=== PATIENT | female | born 1990 | race Caucasian/White ===

== ENCOUNTER 2021-11-20 10:55 | Outpatient (CLI) | payer BC, SELFPAY ==
[2021-11-20 11:17] LABS: Basophils Absolute Auto 0.1 K/mm3 (0.0-0.1); Basophils Percent Auto 0.6 % (0.2-1.2); Eosinophils Absolute Auto 0.3 K/mm3 (0-0.3); Hemoglobin 13.9 g/dL (12.0-15.0); Immature Granulocyte Absolute 0.02 K/mm3 (0.00-0.031); Immature Granulocyte Percent A 0.2 % (0-0.5); Lymphocytes Absolute Auto 2.87 K/mm3 (0.9-3.2); Lymphocytes Percent Auto 31.9 % (18.3-44.2); Mean Corpuscular HGB Conc 33.1 g/dl (32-36); Mean Corpuscular Hemoglobin 30.5 pg (26-34); Mean Corpuscular Volume 92.1 fl (80-100); Mean Platelet Volume 10.3 fl (7.4-10.4); Monocytes Absolute Auto 0.3 K/mm3 (0.1-0.6); Monocytes Percent Auto 3.7 % (2.6-8.5); Neutrophils Absolute Auto 5.5 K/mm3 (1.3-6.7); Neutrophils Percent Auto 60.6 % (45.5-73.1); Platelet Count Result 296 k/mm3 (150-375); Red Blood Count 4.56 M/mm3 (4.2-5.4); Red Cell Distribution Width 12.2 % (11.5-14.5)
[2021-11-20 11:27] LABS: Alanine Aminotransferase 51 U/L (4-35); Alkaline Phosphatase 76 U/L (38-126); Anion Gap 6 mmol/L (8-16); Aspartate Amino Transferase 33 U/L (14-36); Bilirubin,Total 0.5 mg/dL (0.2-1.3); Blood Urea Nitrogen 12 mg/dL (7-17); Calcium 8.7 mg/dL (8.4-10.2); Carbon Dioxide 24 mmol/L (22-30); Chloride 106 mmol/L (98-107); Cholesterol 244 mg/dL (0-200); Estimated Glomerular Filt Rate > 60; Glucose 102 mg/dL (65-110); HDL Direct 53 mg/dL; Potassium 4.4 mmol/L (3.4-5.0); Sodium 136 mmol/L (137-145); Triglycerides 237 mg/dL (<150)
[2021-11-20 11:29] LABS: Hemoglobin A1C 4.8 % (<5.7)
[2021-11-20 11:37] LABS: LDL Cholesterol Direct 130 mg/dL
== END 2021-11-20 10:56 | disposition home or self-care (01) ==
LOC: ANHLAB 10:58
PROVIDERS: PCP Family Medicine; Visit Provider Family Medicine
DX: F41.1 Generalized anxiety disorder (principal); Z13.220 Encounter for screening for lipoid disorders; I10 Essential (primary) hypertension
CPT/HCPCS: 36415; 80053; 80061; 83036; 84443; 85025

== ENCOUNTER → 2021-12-04 08:18 | Outpatient (CLI) | payer BC, SELFPAY ==
--- NOTE | ~2021-12-04 | US_ITS ---
EXAMINATION: US abdomen complete EXAM DATE: 12/04/2021 08:41 INDICATION: R74.8 - Abnormal levels of other serum enzymes. TECHNIQUE: Multiple grayscale and Doppler images of the complete abdomen were obtained (by a technolo gist who performed the scan) and subsequently reviewed. There is no prior study for comparison. FINDINGS: The abdominal aorta is normal in caliber. Visualized portion IVC is patent. The pancreatic head a nd body are normal in appearance. The pancreatic tail is not visualized. The liver has normal echogenicity and contour. There are no focal liver lesions identified. There is no evidence of intrahepatic biliary duct dilation. Portal venous flow was seen in the hepatopedal , normal direction and has normal Doppler waveform. Common bile duct measures 5 mm, which is normal. The gallbladder fossa is unremarkable. Right kidney: There is normal contour and echogenicity. It measures 8.9 x 3.3 x 4.0 centimeters. T here are no focal renal lesions identified. There is no hydronephrosis. Left kidney: There is normal contour and echogenicity. It measures 12.2 x 5.0 x 4.8 centimeters. T here are no focal renal lesions identified. There is no hydronephrosis. The spleen measures 11.5 centimeters and is morphologically normal. IMPRESSION: Unremarkable complete abdominal ultrasound exam. Reviewed, dictated and finalized at location B.
== END ==
PROVIDERS: PCP Family Medicine; Visit Provider Nurse Practitioner Gerontology
DX: R74.8 Abnormal levels of other serum enzymes (principal)
CPT/HCPCS: 76700

== ENCOUNTER 2022-03-22 00:14 | Day surgery (SDC) | payer OTHER, BC, SELFPAY ==
[2022-01-15 12:37] VITALS: BMI 36.6
[2022-03-06 14:11] VITALS: BMI 36.6
--- NOTE | 2022-03-21 14:54 | P.PNAN_ITS ---
Anes - Initial Pre Proc Eval Procedure: Operation Date: 03/22/22 12:30 Proposed Procedures p Esophagogastroduodenoscopy & Colonoscopy - Arjun Osborne MD Date/Time: 03/21/22 14:54 Surgeon: Arjun Osborne MD Pre Op Diagnosis: dysphagia, diarrhea, epigastric pain Patient Data Age: 31 Gender: F Height: 1.65 m Weight: 100 kg Allergies Allergy/AdvReac Type Severity Reaction Status Date / Time No Known Allergies Allergy Verified 03/06/22 14:12 Home Medications Medication Instructions Recorded Confirmed Type bupropion HCl 300 mg 24 hr tablet, 300 mg PO QAM 11/20/21 03/06/22 History extended release buspirone 10 mg tablet 10 mg PO BID 11/20/21 03/06/22 History duloxetine 60 mg capsule,delayed 60 mg PO DAILY 11/20/21 03/06/22 History release levocetirizine 5 mg tablet (24HR 5 mg PO DAILY 11/20/21 03/06/22 History Allergy Relief) norgestimate 0.25 mg-ethinyl 1 tablet PO DAILY 11/20/21 03/06/22 History estradiol 35 mcg tablet (Estarylla) Patient hx anesthesia problems: post op nausea/vomiting Family hx anesthesia problems: none Results Review: All pre-operative results and documents have been reviewed as part of the pre- operative evaluation. [facility] Past Medical History Medical History (Updated 03/21/22 @ 14:55 by Terrance Quinones DO) Anxiety Cholecystitis Depression PONV (postoperative nausea and vomiting) Surgical History Surgical History (Updated 11/20/21 @ 10:40 by Margareth Avalos MD) Hx of cholecystectomy Family History Family History (Updated 11/20/21 @ 10:22 by Celine Torrez) Father Diabetes mellitus Sibling Depression Social History Social History (Updated 11/20/21 @ 10:21 by Celine Torrez) Social History: Smoking status: Never smoker Second hand tobacco smoke exposure: No Alcohol intake: current Drinks per week: 1 Alcohol use details: Occasionally Substance use: current Substance use type: marijuana Other substance usage details: Pt smokes it daily. Last use: daily Living arrangements: with family Gender identity (if verbalized by the patient): Female Spiritual care concerns: No Anes - Eval Final PreProcedure Day of Procedure 03/21/22 14:54 Patient weight: obese Heart: regular rate and rhythm Lungs: clear to auscultation Airway: Mallampati scale class II Neurological: alert and oriented Last oral intake: >/= 8 hours ASA classification: III Emergent: no Anesthetic plan: proceed Anesthesia type and monitoring: general GIVS and standard monitoring Results Review: All pre-operative results and documents have been reviewed as part of the pre- operative evaluation. Informed Consent: The patient's anesthetic plan and its attendant risks and benefits were discussed with the patient/family/POA. Questions were solicited and answers provided to the satisfaction of the patient/family/POA.
--- NOTE | 2022-03-22 11:55 | PM.IMHP ---
H&P: HPI History of Present Illness Date/Time: 03/22/22 11:55 Chief Complaint: Nausea vomiting, abdominal pain, urgency. Narrative: This is a 31-year-old white female patient states for whole how life she has had intermittent nausea vomiting. Vague abdominal pain she has urgency with bowel movements. She denies any difficulty swallowing or weight loss. She was referred by primary care service for colonoscopy an EGD. She reports no stool cultures have been obtained. She denies any blood in her stools. Family history is noncontributory. She does report some anxiety that may correlate. Review of Systems Review of Systems: Review of systems noncontributory. [facility] Past Medical History Medical History (Updated 03/21/22 @ 14:55 by Terrance Quinones DO) Anxiety Cholecystitis Depression PONV (postoperative nausea and vomiting) Surgical History Surgical History (Updated 11/20/21 @ 10:40 by Margareth Avalos MD) Hx of cholecystectomy Family History Family History (Updated 11/20/21 @ 10:22 by Celine Torrez) Father Diabetes mellitus Sibling Depression Social History Social History (Updated 11/20/21 @ 10:21 by Celine Torrez) Social History: Smoking status: Never smoker Second hand tobacco smoke exposure: No Alcohol intake: current Drinks per week: 1 Alcohol use details: Occasionally Substance use: current Substance use type: marijuana Other substance usage details: Pt smokes it daily. Last use: daily Living arrangements: with family Gender identity (if verbalized by the patient): Female Spiritual care concerns: No Meds Home Medications and Allergies Home Medications Medication Instructions Recorded Confirmed Type bupropion HCl 300 mg 24 hr tablet, 300 mg PO QAM 11/20/21 03/06/22 History extended release buspirone 10 mg tablet 10 mg PO BID 11/20/21 03/06/22 History duloxetine 60 mg capsule,delayed 60 mg PO DAILY 11/20/21 03/06/22 History release levocetirizine 5 mg tablet (24HR 5 mg PO DAILY 11/20/21 03/06/22 History Allergy Relief) norgestimate 0.25 mg-ethinyl 1 tablet PO DAILY 11/20/21 03/06/22 History estradiol 35 mcg tablet (Estarylla) Allergies Allergy/AdvReac Type Severity Reaction Status Date / Time No Known Allergies Allergy Verified 03/06/22 14:12 Exam Narrative: Physical exam reveals patient be alert. Vital signs stable. HEENT exam is unremarkable. Patient is anicteric. Lungs are clear to auscultation and percussion. Heart is without murmur or extra sounds. Abdominal exam bowel sounds present soft nontender with no organomegaly. Digital external rectal exam is normal. Assessment and Plan Assessment and plan (1) Diarrhea: Code(s): R19.7 - Diarrhea, unspecified Status: Acute Assessment and Plan: Patient complains of urgency with bowel habits shortly after eating. She denies any bleeding. No cultures have been team. Most consistent with irritable bowel syndrome colonoscopy is recommended to exclude organic disease. Recommend trial of fiber supplementation. Further recommendations may be given after endoscopy. (2) Dyspepsia: Code(s): R10.13 - Epigastric pain Status: Acute Assessment and Plan: Patient complains of abdominal pain most consistent with dyspepsia. May represent functional discomfort such as irritable bowel syndrome. EGD is recommended to evaluate. further recommendations will be given after endoscopy.
[2022-03-22] MEDS: LACTATED RINGERS 1,000 ML 150 ML IV CONT (12:53)
[2022-03-22 12:55] VITALS: BP 116/98; PULSE 93; RESP 17; TEMP 36.4; O2SAT 99
[2022-03-22 12:56] LABS: Glucose Point of Care 107 mg/dl (65-105)
[2022-03-22] MEDS: BENZOCAINE (*SP) 60 ML SPRAY CAN (HURRICAINE) 1 SPRAY MUCOUS MEM (13:01)
[2022-03-22] MEDS: ONDANSETRON INJ 4 MG/2 ML VIAL IV PUSH (13:03)
[2022-03-22 13:34] VITALS: BP 103/54; PULSE 85; RESP 28; O2SAT 100
--- NOTE | 2022-03-22 13:39 | SUR.OPER ---
EGD START AT 1307, END AT 1309. COLONOSCOPY START AT 1316, END AT 1327.
[2022-03-22 13:44] VITALS: BP 104/63; PULSE 73; RESP 31; O2SAT 100
[2022-03-22 13:54] VITALS: BP 114/70; PULSE 71; RESP 22; O2SAT 100
== END 2022-03-22 14:03 | disposition home or self-care (01) ==
PROVIDERS: PCP Family Medicine; Visit Provider Internal Medicine Gastroenterology
PROC: 0DJ08ZZ Inspection of Upper Intestinal Tract, Via Natural or Artificial Opening Endoscopic (ICD-10-PCS; CPT 43235; principal; 2022-03-22 12:30)
DX: R19.7 Diarrhea, unspecified (principal); R11.2 Nausea with vomiting, unspecified; K30 Functional dyspepsia; F41.9 Anxiety disorder, unspecified; F32.A Depression, unspecified; F12.90 Cannabis use, unspecified, uncomplicated; E66.9 Obesity, unspecified; Z68.35 Body mass index [BMI] 35.0-35.9, adult
CPT/HCPCS: 45378; 43239; 82948; 87081; J2405; J2704; J7120

== ENCOUNTER 2025-04-06 15:46 | Outpatient (CLI) | payer OTHER, SELFPAY ==
--- NOTE | ~2025-04-06 | XR_ITS ---
Thoracic spine: Clinical Indication: Radiculopathy AP and lateral views were performed. No fracture is seen. There is normal alignment of the vertebrae. The intervertebral disc spaces appe ar normal. Paravertebral soft tissues appear normal. Impression: No significant abnormalities noted. Reviewed, dictated and finalized at [facility]. Impression: No significant abnormalities noted.
--- NOTE | ~2025-04-06 | XR_ITS ---
Lumbosacral Spine: AP and lateral views Clinical History: Pain Findings: The normal lordotic curve is maintained. The vertebral bodies and posterior elements are i ntact. The intervertebral disc spaces are preserved. The sacroiliac joints are normally outlined. Impression: No significant abnormality. Reviewed, dictated and finalized at [facility]. Impression: No significant abnormality.
--- NOTE | ~2025-04-06 | XR_ITS ---
XR hip BI 2V w AP pelvis 04/06/2025 16:18 Indication: Radiculopathy. Procedure: AP pelvis and 2 views each hip Comparison: No prior studies for comparison. Findings: No fracture, subluxation or dislocation. Sacral foramen are symmetric. No soft tissue abnor mality. No foreign bodies. Impression: 1: No significant abnormality of the pelvis/hips. Reviewed, dictated and finalized at location B. Impression: 1: No significant abnormality of the pelvis/hips.
== END 2025-04-06 15:47 | disposition home or self-care (01) ==
LOC: MICIMG 15:51
PROVIDERS: PCP Family Medicine
DX: M54.6 Pain in thoracic spine (principal); M25.551 Pain in right hip; M25.552 Pain in left hip
CPT/HCPCS: 72070; 72100; 73521